=== PATIENT | female | born 1990 | race African-American/Black ===

== ENCOUNTER 2022-01-11 10:40 | Outpatient (CLI) | payer OTHER | END 2022-01-11 10:41 | disposition home or self-care (01) | LOC: CSHLAB 10:40 | PROVIDERS: ATTEND Obstetrics & Gynecology | DX: Z01.812 Encounter for preprocedural laboratory examination (principal); Z20.822 Contact with and (suspected) exposure to COVID-19; N92.0 Excessive and frequent menstruation with regular cycle; Z53.9 Procedure and treatment not carried out, unspecified reason | CPT/HCPCS: 84703; 85027; 86850; 86900; 86901; U0003; U0005 ==

== ENCOUNTER 2022-01-16 07:56 | Inpatient (IN) | payer OTHER ==
[2022-01-11 12:05] LABS: BHCG - Serum Negative (NEGATIVE); Pregs Control Background? CLEAR/WHITE (CLR/WHITE); Pregs Control Bar Appear? YES (CONTROL BAR)
[2022-01-11 12:09] LABS: Hemoglobin 11.6 g/dL (12.0-15.5); Mean Corpuscular HGB CONC 31.8 g/dL (32.0-36.0); Mean Corpuscular Hemoglobin 24.3 pg (27.0-33.0); Mean Corpuscular Volume 76.5 fl (81.6-98.3); Mean Platelet Volume 9.2 fl (7.4-10.4); Platelet Count 343 10x3/uL (150-450); Red Blood Cell (RBC) Count 4.77 10x6/uL (3.90-5.03); White Blood Cell (WBC) Count 5.1 10x3/uL (3.5-10.5)
[2022-01-11 15:34] VITALS: BMI 39.4
[2022-01-16] MEDS ORDERED: Gabapentin 300 MG CAP ONE (08:06)
[2022-01-16] MEDS ORDERED: CeleCOXIB 100 MG CAP ONE (08:07)
[2022-01-16] MEDS ORDERED: Lidocaine 1% MPF 2 ML VIAL ONE (08:07)
[2022-01-16] MEDS ORDERED: Pantoprazole 40 MG VIAL ONE (08:07)
[2022-01-16] MEDS ORDERED: EPINEPHrine 1 MG/ML AMP ONE (09:05)
[2022-01-16] MEDS ORDERED: Bupivacaine PF 0.5% 30 ML VIAL ONE (09:05)
[2022-01-16] MEDS ORDERED: ceFAZolin 2 GM/Dextrose 50 ML IVPB ONE (09:15)
[2022-01-16] MEDS ORDERED: PROPOFOL 20 ML ONE (09:18)
[2022-01-16] MEDS ORDERED: Fentanyl 250 MCG/5 ML VIAL ONE (09:18)
[2022-01-16] MEDS ORDERED: Glycopyrrolate 0.2 MG/ML 5 ML SYRINGE ONE (09:19)
[2022-01-16] MEDS ORDERED: Ondansetron PF 4 MG/2 ML Vial ONE ×2 (09:19→11:41)
[2022-01-16] MEDS ORDERED: Ketorolac Tromethamine 30 MG/ML VIAL ONE (09:19)
[2022-01-16] MEDS ORDERED: Midazolam HCl 2 mg/2 ml Vial ONE (09:19)
[2022-01-16] MEDS ORDERED: Lidocaine 1% PF 5 ML VIAL ONE (09:19)
[2022-01-16] MEDS ORDERED: Rocuronium Bromide 10 MG/ML (10ML VIAL) ONE (09:19)
[2022-01-16] MEDS ORDERED: ePHEDrine Sulfate 50 MG/10 ML VIAL ONE (09:59)
[2022-01-16] MEDS ORDERED: diphenhydrAMINE 50 MG/ML VIAL IVP PRN (10:26)
[2022-01-16] MEDS ORDERED: fentaNYL Citrate/PF 2,000 MCG in Sodium Chloride 0.9% 60 ML IV PRN (10:26)
[2022-01-16] MEDS ORDERED: diphenhydrAMINE 50 MG/ML VIAL IM PRN (10:26)
[2022-01-16] MEDS ORDERED: Naloxone HCl 0.4 mg/ml Vial IV PRN (10:26)
[2022-01-16] MEDS ORDERED: Zolpidem Tartrate 5 MG TAB PO PRN ×2 (10:26→11:29)
[2022-01-16] MEDS ORDERED: Ondansetron PF 4 MG/2 ML Vial IVP PRN (10:26)
[2022-01-16] MEDS ORDERED: Promethazine HCl 25 MG/ML VIAL IM PRN (10:26)
[2022-01-16] MEDS ORDERED: diphenhydrAMINE 25 MG CAP PO PRN (10:26)
[2022-01-16] MEDS ORDERED: Communication Order-Pharmacy FS PRN (10:30)
[2022-01-16] MEDS ORDERED: fentaNYL Citrate/PF 1,000 MCG in Sodium Chloride 0.9% 30 ML IV PRN (10:45)
[2022-01-16] MEDS ORDERED: Bisacodyl 10 MG SUPP PR PRN (11:29)
[2022-01-16] MEDS ORDERED: Meperidine HCl/PF 25 MG/ML VIAL ONE (11:31)
[2022-01-16] MEDS ORDERED: Fentanyl 100 MCG/2 ML VIAL ONE (11:41)
[2022-01-16] MEDS: Sodium Chloride 0.9% 1,000 ML IV SCH ×3 (13:58→23:39)
[2022-01-16] MEDS ORDERED: ceFAZolin 2 GM/Dextrose 50 ML 2 GM in Premix Bag 1 BAG IVPB SCH (16:00)
[2022-01-16] MEDS: Ketorolac Tromethamine 30 MG/ML VIAL IVP SCH ×2 (17:12→23:34)
[2022-01-17] MEDS: Ketorolac Tromethamine 30 MG/ML VIAL IVP SCH (04:27)
[2022-01-17 04:59] LABS: Hemoglobin 9.7 g/dL (12.0-15.5); Mean Corpuscular Hemoglobin 24.2 pg (27.0-33.0); Mean Corpuscular Volume 73.3 fl (81.6-98.3); Mean Platelet Volume 9.7 fl (7.4-10.4); Platelet Count 296 10x3/uL (150-450); Red Blood Cell (RBC) Count 4.01 10x6/uL (3.90-5.03); White Blood Cell (WBC) Count 12.4 10x3/uL (3.5-10.5)
[2022-01-17] MEDS: Sodium Chloride 0.9% 1,000 ML IV SCH ×2 (09:23→19:33)
[2022-01-17] MEDS: Simethicone Chewable 80 MG TAB PO PRN ×2 (09:24→19:37)
[2022-01-18] MEDS: Sodium Chloride 0.9% 1,000 ML IV SCH ×3 (04:40→21:59)
[2022-01-18] MEDS ORDERED: HYDROcodone/Acetaminophen 5/325 mg Tablet PO PRN (06:50)
[2022-01-18] MEDS: Ibuprofen 600 MG TAB PO SCH ×3 (07:00→20:51)
[2022-01-18] MEDS: HYDROcodone/Acetaminophen 5/325 mg Tablet PO PRN ×2 (10:18→14:21)
[2022-01-19] MEDS: HYDROcodone/Acetaminophen 5/325 mg Tablet PO PRN ×2 (00:09→05:59)
[2022-01-19] MEDS: Ibuprofen 600 MG TAB PO SCH ×2 (01:56→08:01)
[2022-01-19] MEDS: Sodium Chloride 0.9% 1,000 ML IV SCH (03:45)
[2022-01-19 08:05] VITALS: BP 120/58; TEMP 98
== END 2022-01-19 11:40 | disposition home or self-care (01) | DRG 742 ==
LOC: CSHSDC 07:56 → CSHPP 12:53
PROVIDERS: ADMIT Obstetrics & Gynecology; ATTEND Obstetrics & Gynecology
PROC: 0UT90ZL Resection of Uterus, Supracervical, Open Approach (ICD-10-PCS; principal; 2022-01-16)
PROC: 0UT74ZZ Resection of Bilateral Fallopian Tubes, Percutaneous Endoscopic Approach (ICD-10-PCS; 2022-01-16)
PROC: 0UJD4ZZ Inspection of Uterus and Cervix, Percutaneous Endoscopic Approach (ICD-10-PCS; 2022-01-16)
PROC: 8E0W4CZ Robotic Assisted Procedure of Trunk Region, Percutaneous Endoscopic Approach (ICD-10-PCS; 2022-01-16)
DX: N92.0 Excessive and frequent menstruation with regular cycle (principal); R71.0 Precipitous drop in hematocrit; N94.6 Dysmenorrhea, unspecified; Z20.822 Contact with and (suspected) exposure to COVID-19; Z98.51 Tubal ligation status; N88.1 Old laceration of cervix uteri
CPT/HCPCS: 36415; 84703; 85027; 86850; 86900; 86901; 88307; C1776; C9113; J0171; J0690; J1885; J2175; J2250; J2405; J2704; J3010; J3490; J7050; S0020; U0003; U0005